=== PATIENT | female | born 1990 | race Caucasian/White ===

== ENCOUNTER 2025-06-10 16:17 | Emergency (ER) | payer OTHER ==
[2025-06-10 16:34] VITALS: RESP 16; TEMP 97.8
--- NOTE | 2025-06-10 16:36 | ERPHSYRPT ---
- History of Present Illness Time Seen by Provider: 06/10/25 16:30 Source: patient, family Exam Limitations: no limitations Physician History: Pt had onset of cough, fever, aching a few days ago and feeling with the type of dizziness like she could pass out , and also wonders if she could have Barbosa syndrome but has not had workup - some cough for a month and some SObreath . general nausea chronic not worse with this. Normal Mental status and neuro exam, gait and coordination. Discussed with pt and available family risks and benefits of testing/Tx including CBC, CMP, EKG, Trop, BNP, D-dimer, UA, Lipase, CT PE ( if indicated from D dimer) , CXR, swabs for Covid, RSV, Flu and Strep, and they wish to proceed so these are ordered. Results discussed with pt and available family Pt Percs out for PE risk with no Hx of PE/DVT, No recent hosp or surg , no hormonal Tx. No tachycardia, and young age. Pt has Heart score of 3 or less with Nonsmoker, Neg fam Hx, No hx Hypertension or cholest or prior CAD, young age,, Atypical symptoms ( no classical CP score 1, nonspecific EKG score 1) neg trop, , Pt and family were advised of the limitations of the testing and Tx performed today in this setting and that we have not yet determined a precise cause for their symptoms and there still could be additional pathology of a serious nature evolving undetected, including cardiac or vascular even with low heart score, . They voice their understanding and wish to choose outpatient f/u rather than further testing in ER or admission to hospital or transfer at this time and they have the capacity to make this choice. We further discussed going on AB z sid for resp symptoms and CXR risks/benefits and they wish to proceed. Timing/Duration: day(s) Cough Quality/Degree: moderate, dry cough Possible Cause: no prior episodes Associated Symptoms: fever, cough Allergies/Adverse Reactions: No Known Drug Allergies Allergy (Unverified 06/10/25 16:25) - Review of Systems Constitutional: Fever, Malaise, Weakness, No Chills Eyes: No Symptoms Ears, Nose, & Throat: No Symptoms Respiratory: Cough, Dyspnea Cardiac: No Chest Pain, No Edema, No Syncope Abdominal/Gastrointestinal: Nausea, No Abdominal Pain, No Vomiting, No Diarrhea Genitourinary Symptoms: No Dysuria Musculoskeletal: No Back Pain, No Neck Pain Skin: No Rash Neurological: No Dizziness, No Focal Weakness, No Sensory Changes Psychological: No Symptoms Endocrine: No Symptoms Hematologic/Lymphatic: No Symptoms Immunological/Allergic: No Symptoms All Other Systems: Reviewed and Negative - Past Medical History Pertinent Past Medical History: Yes Neurological History: No Pertinent History ENT History: No Pertinent History Cardiac History: No Pertinent History Respiratory History: Other (reactive airway) Musculoskeletal History: No Pertinent History GI Medical History: No Pertinent History History: No Pertinent History Psycho-Social History: Anxiety Female Reproductive Disorders: No Pertinent History - Past Surgical History Past Surgical History: No Cardiac: No Pertinent History Respiratory: No Pertinent History Gastrointestinal: No Pertinent History Genitourinary: No Pertinent History Musculoskeletal: No Pertinent History Female Surgical History: No Pertinent History Significant Family History: no pertinent family hx - Female History Hx Now: No - Nursing Vital Signs Nursing Vital Signs: Initial Vital Signs Temperature 97.8 F 06/10/25 16:18 Pulse Rate 70 06/10/25 16:18 Respiratory Rate 16 06/10/25 16:18 Blood Pressure 134/84 06/10/25 16:18 O2 Sat by Pulse Oximetry 100 06/10/25 16:18 Pain Scale Pain Intensity 0 - Physical Exam General Appearance: no apparent distress, alert Eye Exam: PERRL/EOMI, eyes nml inspection Ears, Nose, Throat Exam: normal ENT inspection, TMs normal, pharynx normal, moist mucous membranes Neck Exam: normal inspection, non-tender, supple, full range of motion Respiratory Exam: normal breath sounds, lungs clear, No respiratory distress Cardiovascular Exam: regular rate/rhythm, normal heart sounds Gastrointestinal/Abdomen Exam: soft, No tenderness Pelvic Exam: deferred Rectal Exam: deferred Back Exam: normal inspection, No CVA tenderness, No vertebral tenderness Extremity Exam: normal inspection, normal range of motion Neurologic Exam: alert, oriented x 3, cooperative, normal mood/affect, sensation nml, No motor deficits Skin Exam: normal color, warm, dry, No rash Lymphatic Exam: inguinal node tender (L), No adenopathy SpO2: 99 O2 Delivery: Room Air - Course Nursing assessment & vital signs reviewed: Yes EKG Interpreted by Me: Sinus Rhythm, NORMAL AXIS, NORMAL INTERVALS, NORMAL QRS, Non-specific ST Changes - Radiology Exams Chest X-ray Interpretation: Interpreted by me, No Pneumothorax, Other (increased interstitial density lower lobes) Ordered Tests: Active Orders 24 hr Category Date Time Status EKG-ER Only STAT Care 06/10/25 16:38 Active IV Insertion STAT Care 06/10/25 16:38 Active CHEST 1 VIEW (PORTABLE) Stat Exams 06/10/25 16:38 Taken CBC W DIFF Stat Lab 06/10/25 16:54 Completed CMP Stat Lab 06/10/25 16:54 Completed D-DIMER QUANTITATIVE Stat Lab 06/10/25 16:54 Completed HCG QUALITATIVE, SERUM Stat Lab 06/10/25 16:54 Completed LIPASE Stat Lab 06/10/25 16:54 Completed Lactic Acid Stat Lab 06/10/25 16:58 Completed NT PRO BNPII Stat Lab 06/10/25 16:54 Completed TROPONIN Q4H Lab 06/10/25 16:54 Completed TROPONIN Q4H Lab 06/10/25 20:45 Ordered TROPONIN Q4H Lab 06/11/25 00:45 Ordered UA W/RFX UR CULTURE Stat Lab 06/10/25 16:54 Completed Medication Summary Discontinued Medications Generic Name Dose Route Start Last Admin Trade Name Warnerq PRN Reason Stop Dose Admin Sodium Chloride 1,000 mls @ 999 mls/hr 06/10/25 16:38 06/10/25 16:58 Sodium Chloride 0.9% 1000 Ml IV 06/10/25 17:38 999 mls/hr .Q1H1M STA Administration Sodium Chloride Confirm 06/10/25 16:45 Sodium Chloride 0.9% 1000 Ml Administered 06/10/25 16:46 Dose 1,000 mls @ ud .ROUTE .STK-MED ONE Ondansetron HCl 4 mg 06/10/25 16:38 06/10/25 16:58 Ondansetron Hcl 4 Mg/2 Ml Vial IV 06/10/25 16:39 4 mg STAT ONE Administration Ondansetron HCl Confirm 06/10/25 16:45 Ondansetron Hcl 4 Mg/2 Ml Vial Administered 06/10/25 16:46 Dose 4 mg .ROUTE .STK-MED ONE Lab/Rad Data: Laboratory Result Diagrams 06/10/25 16:54 06/10/25 16:54 Laboratory Results 06/10/25 06/10/25 06/10/25 Range/Units 16:58 16:54 16:54 WBC (3.98-10.04) x10^3/uL RBC (3.93-5.22) x10^6/uL Hgb (11.2-15.7) g/dL Hct (34.1-44.9) % MCV (79.4-94.8) fL MCH (25.6-32.2) pg MCHC (32.2-35.5) g/dL RDW (11.7-14.4) % Plt Count (182-369) x10^3/uL MPV (9.4-12.3) fL Gran % (34.0-71.1) % Immature Gran % (Auto) (0.001-0.429) % Nucleat RBC Rel Count (0.00-0.2) % Eos # (Auto) (0.04-0.36) x10^3/uL Immature Gran # (Auto) (0.001-0.031) x10^3u/L Absolute Lymphs (auto) (1.18-3.74) x10^3/uL Absolute Monos (auto) (0.24-0.86) x10^3/uL Absolute Nucleated RBC (0.00-0.012) x10^3u/L Lymphocytes % (19.3-51.7) % Monocytes % (4.7-12.5) % Eosinophils % (0.7-5.8) % Basophils % (0.1-1.2) % Absolute Granulocytes (1.56-6.13) x10^3/uL Basophils # (0.01-0.08) x10^3/uL D-Dimer < 0.19 (0.0-0.50) mg/L Sodium (135-145) mmol/L Potassium (3.5-5.1) mmol/L Chloride (98-107) mmol/L Carbon Dioxide (22-30) mmol/L Anion Gap (5-15) MEQ/L BUN (7-17) mg/dL Creatinine (0.52-1.04) mg/dL Estimated GFR ML/MIN Glucose (74-106) mg/dL Lactic Acid 1.0 (0.4-2.0) Calcium (8.4-10.2) mg/dL Total Bilirubin (0.2-1.3) mg/dL AST (14-36) U/L ALT (0-35) U/L Alkaline Phosphatase (38-126) U/L Troponin I (0.000-0.033) ng/mL NT-Pro-B Natriuret Pep (<300) pg/mL Serum Total Protein (6.3-8.2) g/dL Albumin (3.5-5.0) g/dL Lipase (23-300) U/L Serum HCG, Qual NEGATIVE (NEGATIVE) Urine Color (Yellow) Urine Appearance (Clear) Urine pH (4.6-8.0) Ur Specific Sieper (1.005-1.030) Urine Protein (Negative) Urine Glucose (UA) (Negative) mg/dL Urine Ketones (Negative) Urine Blood (Negative) Urine Nitrite (Negative) Urine Bilirubin (Negative) Urine Urobilinogen (0.2) mg/dL Ur Leukocyte Esterase (Negative) U Hyaline Cast (Auto) (0-2) /LPF Urine Microscopic RBC (0-5) /HPF Urine Microscopic WBC (0-5) /HPF Ur Epithelial Cells (None Seen) /HPF Urine Bacteria (None Seen) /HPF Urine Culture Reflexed (NO) 06/10/25 06/10/25 06/10/25 Range/Units 16:54 16:54 16:54 WBC 11.9 H (3.98-10.04) x10^3/uL RBC 4.56 (3.93-5.22) x10^6/uL Hgb 13.0 (11.2-15.7) g/dL Hct 39.4 (34.1-44.9) % MCV 86.4 (79.4-94.8) fL MCH 28.5 (25.6-32.2) pg MCHC 33.0 (32.2-35.5) g/dL RDW 12.5 (11.7-14.4) % Plt Count 355 (182-369) x10^3/uL MPV 9.7 (9.4-12.3) fL Gran % 76.4 H (34.0-71.1) % Immature Gran % (Auto) 0.5 H (0.001-0.429) % Nucleat RBC Rel Count 0.0 (0.00-0.2) % Eos # (Auto) 0.01 L (0.04-0.36) x10^3/uL Immature Gran # (Auto) 0.06 H (0.001-0.031) x10^3u/L Absolute Lymphs (auto) 2.03 (1.18-3.74) x10^3/uL Absolute Monos (auto) 0.68 (0.24-0.86) x10^3/uL Absolute Nucleated RBC 0.00 (0.00-0.012) x10^3u/L Lymphocytes % 17.1 L (19.3-51.7) % Monocytes % 5.7 (4.7-12.5) % Eosinophils % 0.1 L (0.7-5.8) % Basophils % 0.2 (0.1-1.2) % Absolute Granulocytes 9.05 H (1.56-6.13) x10^3/uL Basophils # 0.02 (0.01-0.08) x10^3/uL D-Dimer (0.0-0.50) mg/L Sodium 141 (135-145) mmol/L Potassium 3.8 (3.5-5.1) mmol/L Chloride 102 (98-107) mmol/L Carbon Dioxide 29 (22-30) mmol/L Anion Gap 13.5 (5-15) MEQ/L BUN 8 (7-17) mg/dL Creatinine 0.57 (0.52-1.04) mg/dL Estimated GFR 123.0 ML/MIN Glucose 100 (74-106) mg/dL Lactic Acid (0.4-2.0) Calcium 9.7 (8.4-10.2) mg/dL Total Bilirubin 0.30 (0.2-1.3) mg/dL AST 18 (14-36) U/L ALT 13 (0-35) U/L Alkaline Phosphatase 59 (38-126) U/L Troponin I < 0.012 (0.000-0.033) ng/mL NT-Pro-B Natriuret Pep 61.3 (<300) pg/mL Serum Total Protein 7.4 (6.3-8.2) g/dL Albumin 4.6 (3.5-5.0) g/dL Lipase 65 (23-300) U/L Serum HCG, Qual (NEGATIVE) Urine Color (Yellow) Urine Appearance (Clear) Urine pH (4.6-8.0) Ur Specific Sieper (1.005-1.030) Urine Protein (Negative) Urine Glucose (UA) (Negative) mg/dL Urine Ketones (Negative) Urine Blood (Negative) Urine Nitrite (Negative) Urine Bilirubin (Negative) Urine Urobilinogen (0.2) mg/dL Ur Leukocyte Esterase (Negative) U Hyaline Cast (Auto) (0-2) /LPF Urine Microscopic RBC (0-5) /HPF Urine Microscopic WBC (0-5) /HPF Ur Epithelial Cells (None Seen) /HPF Urine Bacteria (None Seen) /HPF Urine Culture Reflexed (NO) 06/10/25 Range/Units 16:54 WBC (3.98-10.04) x10^3/uL RBC (3.93-5.22) x10^6/uL Hgb (11.2-15.7) g/dL Hct (34.1-44.9) % MCV (79.4-94.8) fL MCH (25.6-32.2) pg MCHC (32.2-35.5) g/dL RDW (11.7-14.4) % Plt Count (182-369) x10^3/uL MPV (9.4-12.3) fL Gran % (34.0-71.1) % Immature Gran % (Auto) (0.001-0.429) % Nucleat RBC Rel Count (0.00-0.2) % Eos # (Auto) (0.04-0.36) x10^3/uL Immature Gran # (Auto) (0.001-0.031) x10^3u/L Absolute Lymphs (auto) (1.18-3.74) x10^3/uL Absolute Monos (auto) (0.24-0.86) x10^3/uL Absolute Nucleated RBC (0.00-0.012) x10^3u/L Lymphocytes % (19.3-51.7) % Monocytes % (4.7-12.5) % Eosinophils % (0.7-5.8) % Basophils % (0.1-1.2) % Absolute Granulocytes (1.56-6.13) x10^3/uL Basophils # (0.01-0.08) x10^3/uL D-Dimer (0.0-0.50) mg/L Sodium (135-145) mmol/L Potassium (3.5-5.1) mmol/L Chloride (98-107) mmol/L Carbon Dioxide (22-30) mmol/L Anion Gap (5-15) MEQ/L BUN (7-17) mg/dL Creatinine (0.52-1.04) mg/dL Estimated GFR ML/MIN Glucose (74-106) mg/dL Lactic Acid (0.4-2.0) Calcium (8.4-10.2) mg/dL Total Bilirubin (0.2-1.3) mg/dL AST (14-36) U/L ALT (0-35) U/L Alkaline Phosphatase (38-126) U/L Troponin I (0.000-0.033) ng/mL NT-Pro-B Natriuret Pep (<300) pg/mL Serum Total Protein (6.3-8.2) g/dL Albumin (3.5-5.0) g/dL Lipase (23-300) U/L Serum HCG, Qual (NEGATIVE) Urine Color Yellow (Yellow) Urine Appearance Clear (Clear) Urine pH 7.0 (4.6-8.0) Ur Specific Sieper 1.010 (1.005-1.030) Urine Protein Negative (Negative) Urine Glucose (UA) Negative (Negative) mg/dL Urine Ketones Negative (Negative) Urine Blood Negative (Negative) Urine Nitrite Negative (Negative) Urine Bilirubin Negative (Negative) Urine Urobilinogen 0.2 (0.2) mg/dL Ur Leukocyte Esterase Negative (Negative) U Hyaline Cast (Auto) NONE SEEN (0-2) /LPF Urine Microscopic RBC 0-2 (0-5) /HPF Urine Microscopic WBC 0-2 (0-5) /HPF Ur Epithelial Cells None Seen (None Seen) /HPF Urine Bacteria None Seen (None Seen) /HPF Urine Culture Reflexed NO (NO) - Progress Progress: improved, re-examined Air Movement: good Progress Note: 06/10/25 16:41 orthostats had subjective symptoms of wooziness after a few minutes standing, but BP increased and HR minimally increased 5 beats or so - so not objectively positive. Blood Culture(s) Obtained: No Antibiotics given: No Counseled pt/family regarding: lab results, diagnosis, need for follow-up, rad results Medical Desision Making - Independent Historian Additional History obtained from: Family - Discussion of managment Reviewed:: Test results, Need for additional workup Agreed on:: Treatment plan, need for follow-up - Risk of complications The pt has a mod risk of morbidity or mortality based on: Need for prescription drug management The pt has a high risk of morbidity or mortality based on: Decision regarding hospitilization or escalation of hosp level of care - Departure Departure Disposition: Home Clinical Impression: SObreath and dizziness of unknown etiolo, Persistent cough Condition: Good Critical Care Time: No Referrals: DOCTOR,NO FAMILY [Primary Care Provider, UNKNOWN] - Follow up/PCP as directed Instructions: Chest pain in adults - ED discharge instructions, Near Fainting (DC), Orthostatic hypotension, Fainting in adults - ED discharge instructions, Pneumonia in adults - Discharge instructions, Asthma in adults - ED discharge instructions Additional Instructions: We have not yet determined the exact cause for your symptoms, so further workup with your Dr. is important including cardiac, pulmonary, BARBOSA, . Although the heart risk score is low, there still can be undetected cardiac or vascular conditions so workup is still important. There may be an underlying reactive airway or other lung condition contributing to your chronic cough so that work up and treatment is alos important and the BARBOSA requires some special testing to rule out as well. We have included some precaution instructions meantime, We will treat also for walking pneumonia with antibiotics but this also should be rechecked with your Dr. followup your blood pressure and history of anxiety with your Drs as well. Return meantime if CHest pain, passing out , increased shortness or breath neuro symptoms or any other concerns. It is also best not to drive or climb any ladders. Prescriptions: Azithromycin 250 mg [Zithromax 250 MG TABLET] 250 mg PO DAILY #4 tablet
[2025-06-10] MEDS ORDERED: Zofran 4 MG/2 ML VIAL ONE (16:45)
[2025-06-10] MEDS: Zofran 4 MG/2 ML VIAL IV ONE (16:58)
[2025-06-10 17:02] LABS: BASOPHIL % 0.2 % (0.1-1.2); Basophil (Absolute #) 0.02 x10^3/uL (0.01-0.08); Eosinophil (Absolute #) 0.01 x10^3/uL (0.04-0.36); Hematocrit 39.4 % (34.1-44.9); Hemoglobin 13.0 g/dL (11.2-15.7); IMMATURE GRAN # 0.06 x10^3u/L (0.001-0.031); IMMATURE GRAN % 0.5 % (0.001-0.429); Lymphocyte (Absolute #) 2.03 x10^3/uL (1.18-3.74); Mean Corpuscular Hemoglobin 28.5 pg (25.6-32.2); Mean Corpuscular Hgb Concent. 33.0 g/dL (32.2-35.5); Monocyte (Absolute #) 0.68 x10^3/uL (0.24-0.86); NUCLEATED RBC # 0.00 x10^3u/L (0.00-0.012); NUCLEATED RBC % 0.0 % (0.00-0.2); Platelet Count 355 x10^3/uL (182-369); Red Blood Count 4.56 x10^6/uL (3.93-5.22); White Blood Count 11.9 x10^3/uL (3.98-10.04)
[2025-06-10 17:10] LABS: Glucose, Urine Negative (Negative); Protein,Urine Dip Negative (Negative); RBC 0-2 /HPF (0-5); WBC 0-2 /HPF (0-5)
[2025-06-10 17:16] LABS: HCG SERUM TEST NEGATIVE (NEGATIVE)
[2025-06-10 17:18] LABS: Calcium 9.7 mg/dL (8.4-10.2); Carbon Dioxide 29.0 mmol/L (22-30); Creatinine 1 0.57 mg/dL (0.52-1.04); EST GLOMERULAR FILTRATION RATE 123.0 ML/MIN; Glucose 100.0 mg/dL (74-106); Potassium 3.8 mmol/L (3.5-5.1); SGOT/AST 18.0 U/L (14-36); SGPT/ALT 13.0 U/L (0-35); Total Protein 7.4 g/dL (6.3-8.2)
[2025-06-10 17:30] LABS: NT PRO BNPII 61.3 pg/mL (<300); TROPONIN < 0.012 ng/mL (0.000-0.033)
[2025-06-10 17:40] LABS: INFLUENZA A NEGATIVE (NEGATIVE); INFLUENZA B NEGATIVE (NEGATIVE); RESPIRATORY SYNCTIAL VIRUS NEGATIVE (NEGATIVE); SARS-CoV-2 Xpert Express NEGATIVE (NEGATIVE)
[2025-06-10] MEDS ORDERED: Zithromax 250 MG TABLET ONE (18:24)
[2025-06-10] MEDS: Zithromax 250 MG TABLET PO ONE (18:25)
[2025-06-10 18:41] VITALS: BP 135/70; PULSE 78; O2SAT 100
--- NOTE | 2025-06-10 20:41 | XRAY ---
Indication: Short of breath. Comparison: None Portable chest demonstrates normal heart, lungs, and bony thorax.
== END 2025-06-10 18:43 | disposition home or self-care (01) ==
LOC: ED 16:17
DX: R06.02 Shortness of breath (principal); R42 Dizziness and giddiness; R05.3 Chronic cough; R50.9 Fever, unspecified; Z79.899 Other long term (current) drug therapy